=== PATIENT | female | born 1970 | race African-American/Black ===

== ENCOUNTER 2020-12-04 19:48 | Emergency (ER) | payer MEDICAID ==
[~2020-12-04] VITALS: Ht 170.2 cm; Wt 82.0 kg
[2020-12-04 20:32] VITALS: BP 175/90
== END 2020-12-04 21:42 | disposition home or self-care (01) ==
LOC: ER 19:48
DX: S92.911A Unspecified fracture of right toe(s), initial encounter for closed fracture (principal); Z98.890 Other specified postprocedural states; X58.XXXA Exposure to other specified factors, initial encounter; Y93.89 Activity, other specified; Y92.89 Other specified places as the place of occurrence of the external cause; Y99.8 Other external cause status
CPT/HCPCS: 73630; 81025; 99283; Z7610

== ENCOUNTER 2021-08-01 22:59 | Emergency (ER) | payer MEDICAID ==
[~2021-08-01] VITALS: Ht 170.2 cm; Wt 96.0 kg
[2021-08-01] MEDS ORDERED: IBUPROFEN 400MG TABLET PO ONE (23:45)
[2021-08-01] MEDS ORDERED: ACETAMINOPHEN 325MG TABLET PO ONE (23:45)
[2021-08-02] MEDS ORDERED: LIDO1ADH23 TP (01:54)
[2021-08-02] MEDS ORDERED: ACET-2708 MT (01:54)
[2021-08-02] MEDS ORDERED: IBUP-2028 MT (01:54)
[2021-08-02 02:00] VITALS: BP 142/69
[2021-08-02] MEDS ORDERED: LIDOCAINE 5% PATCH TOP SCH (09:00)
== END 2021-08-02 02:17 | disposition home or self-care (01) ==
LOC: ER 22:59
DX: M25.562 Pain in left knee (principal); I10 Essential (primary) hypertension; W01.0XXA Fall on same level from slipping, tripping and stumbling without subsequent striking against object, initial encounter; Y93.89 Activity, other specified; Y92.480 Sidewalk as the place of occurrence of the external cause
CPT/HCPCS: 73564; 99283

== ENCOUNTER 2022-03-01 11:54 | Emergency (ER) | payer MEDICAID ==
[~2022-03-01] VITALS: Ht 167.6 cm; Wt 96.0 kg
[~2022-03-01 11:54] MED LIST: ACET-2708 MT; IBUP-2028 MT; LIDO1ADH23 TP
[2022-03-01 12:03] VITALS: BP 145/93
[2022-03-01 13:22] LABS: CLARITY URINE TURBID (CLEAR); COLOR URINE YELLOW (YELLOW); KETONES URINE TRACE (NEGATIVE); LEUKOCYTE ESTERASE URINE 3+ (NEGATIVE); NITRITE URINE NEGATIVE (NEGATIVE); OCCULT BLOOD URINE 2+ (NEGATIVE); PROTEIN URINE 2+ (NEGATIVE); SPECIFIC GRAVITY URINE 1.018 (1.005-1.030); UROBILINOGEN URINE 0.2 E.U./dL (0.2-1.0)
[2022-03-01] MEDS ORDERED: SULF1TAB48 MT (14:07)
[2022-03-01] MEDS ORDERED: SULFAMETHOXAZOLE/TRIMETHOPRIM 800/160MG TABLET PO ONE (14:15)
== END 2022-03-01 14:33 | disposition home or self-care (01) ==
LOC: ER 11:54
DX: N39.0 Urinary tract infection, site not specified (principal); Z79.899 Other long term (current) drug therapy
CPT/HCPCS: 81003; 99283